=== PATIENT | female | born 1965 | race Caucasian/White ===

== ENCOUNTER 2016-10-28 23:29 | Outpatient (CLI) | payer OTHER | END 2016-10-28 23:30 | disposition critical access hospital (66) | DX: I46.9 Cardiac arrest, cause unspecified (principal) | CPT/HCPCS: A0425; A0433 ==

== ENCOUNTER 2016-10-28 23:42 | Emergency (ER) | payer OTHER ==
--- NOTE | 2016-10-28 23:50 | ED Physician Documentation ---
PD HPI CPR - Stated complaint Stated Complaint: CPR - History obtained from History obtained from: EMS - History of Present Illness Timing - onset: How many hours ago (1) Preceding symptoms: Unknown Witnessed: Arrest witnessed Fall: No fall Bystander CPR: Bystander CPR () EMS findings: Unresponsive, Apneic, Pulseless Treatment GENERAL MAINTENANCE TECHNICIAN: CPR, Intubated, Paced (has PPM), Epi (x 5), Lidocaine (x 2), Sodium Bicarb (x 1), IV, IO Advanced directive: Full code - Additional information Additional information: heard patient fall out of bed, found patient was unresponsive and not breathing. He called 911, was instructed to start CPR. Medics arrived and found patient pulseless and apneic despite electrical activity on the monitor (c/w PPM ). Intubated 7.5 ETT and by the time patient arrives to ED, medics have been performing CPR for 45 minutes, given 5 rounds of epinephrine, 2 doses of lidocaine, and IV sodium bicarb. despite these interventions, they have not had any palpable pulses nor spontaneous respirations. Review of Systems Unable to obtain: Unresponsive, Intubated PD PAST MEDICAL HISTORY - Past Medical History Cardiovascular: Congestive heart failure, High cholesterol, Valve disorder Respiratory: Shortness of breath, Sleep apnea Neuro: TIA, Head injury, Seizure disorder Endocrine/Autoimmune: Type 2 diabetes GI: None : None HEENT: Other Psych: Depression, Anxiety Musculoskeletal: Fibromyalgia Derm: None - Past Surgical History Past Surgical History: Yes General: Cholecystectomy, Appendectomy, Other Ortho: Knee replacement /SPICE GRINDER: Tubal ligation, Hysterectomy Cardiovascular: Valve replacement, Pacemaker, Other HEENT: Other Derm: Skin cancer surgery - Present Medications Home Medications: Ambulatory Orders Medication Instructions Recorded Confirmed DULoxetine [Cymbalta] 30 mg PO TID 12/31/12 05/03/16 Potassium Chloride 20 meq PO DAILY 12/31/12 09/30/14 Pregabalin [Lyrica] 50 mg PO BID 12/31/12 05/03/16 Warfarin Sodium [Coumadin] 5 mg PO HS 12/31/12 05/03/16 traZODone [Desyrel] 100 mg PO HS 01/07/13 05/03/16 Clonazepam [Klonopin] 1 mg PO HS 02/27/13 05/03/16 Metoprolol Tartrate [Lopressor] 25 mg PO BID 05/03/16 05/03/16 Sulfamethoxazole/Trimethoprim 1 tab PO DAILY 05/03/16 05/03/16 [Sulfamethoxazole-Tmp Ss Tablet] metFORMIN [Glucophage] 500 mg PO BID 05/03/16 05/03/16 - Allergies Allergies/Adverse Reactions: Allergies Allergy/AdvReac Type Severity Reaction Status Date / Time ampicillin sodium * Allergy Intermediate redness/soa Verified 05/03/16 11:31 [From Unasyn] sulbactam sodium * Allergy Intermediate redness/soa Verified 05/03/16 11:31 [From Unasyn] metronidazole [From Flagyl] AdvReac Intermediate vomiting Verified 05/03/16 11: 31 Metronidazole HCl * AdvReac Intermediate vomiting Verified 05/03/16 11:31 [From Flagyl] - Social History Does the pt smoke?: No Smoking Status: Never smoker Does the pt drink ETOH?: No Does the pt have substance abuse?: No - Immunizations Immunizations are current?: Yes - POLST Patient has POLST: No PD ED PE NORMAL - Vitals Vital signs reviewed: Yes - General General: Other (vomitus on face and in hair) - HEENT HEENT: Other (ETT in place) - Derm Derm: Other (pale with cool extremities) PD ED PE EXPANDED - General General: Unresponsive, Other (intubated, unresponsive) - HEENT HEENT: Other (pupils are fixed and dilated bilaterally) - Cardiac Cardiac: Other (no heart tones/sounds to ausculatation when CPR held) - Respiratory Respiratory: Other (intubated (ETT), good chest rise and equal breath sounds to auscultation) Results - Vitals Vitals: Oxygen O2 Source Room air PD MEDICAL DECISION MAKING - ED course Complexity details: reviewed old records, considered differential ED course: Shortly after arrival, CPR held. There was no palpable pulses (carotid, femoral) , no spontaneous respirations, no response to painful stimuli. pupils fixed and dilated, no heart sounds to auscultation. There are occasional paced beats on monitor. Compressions resumed so that I could confer with the code team that further attempts at resuscitation would be futile and team agrees with this decision. I pronounced patient at 11:47 PM. - Critical Care Time(min): 15 Time Includes: Direct patient care, Review records, Reassess patient, Document care, See progress note Data interpretation: See progress note Procedures included in critical care time: See progress note Procedures excluded from critical care time: See progress note Departure - Departure Disposition: 20 Clinical Impression: Cardiopulmonary arrest, Discharge Date/Time: 10/29/16 02:41
== END 2016-10-29 02:41 | disposition expired ==
LOC: EDUNIT# → ED 23:42
DX: I46.9 Cardiac arrest, cause unspecified (principal); I50.9 Heart failure, unspecified; E78.00 Pure hypercholesterolemia, unspecified; G47.30 Sleep apnea, unspecified; Z86.73 Personal history of transient ischemic attack (TIA), and cerebral infarction without residual deficits; Z79.01 Long term (current) use of anticoagulants; E11.9 Type 2 diabetes mellitus without complications; Z79.84 Long term (current) use of oral hypoglycemic drugs; M79.7 Fibromyalgia
CPT/HCPCS: 92950; 99283; 99285